=== PATIENT | male | born 1965 | race Two or more races ===

== ENCOUNTER 2017-07-27 23:26 | Emergency (ER) | payer BC ==
[~2017-07-27] VITALS: Ht 165.1 cm; Wt 89.9 kg
[2017-07-28 00:01] LABS: APPEARANCE SL.HAZY ((CLEAR)); BILIRUBIN NEGATIVE; BLOOD MODERATE; COLOR YELLOW ((YELLOW)); GLUCOSE (STRIP) NEGATIVE; KETONES NEGATIVE; LEUKOCYTES TRACE; NITRITE NEGATIVE; PROTEIN (STRIP) 30; SPECIFIC GRAVITY 1.025 (1.000-1.030); UROBILINOGEN 0.2 MG/DL (0.2-1.0)
[2017-07-28 00:17] LABS: HEMATOCRIT 38.8 % (38.0-50.0); HEMOGLOBIN 13.8 G/DL (12.5-16.6); MCH 28.9 PG (29.0-34.0); MCHC 35.6 G/DL (30.0-36.0); MCV 81.3 FL (86-99); PLATELET COUNT 197 K/uL (156-360); RBC DIS.WIDTH-CV 11.9 % (11.8-14.6); RBC DIS.WIDTH-SD 34.5 % (39-53); RED BLOOD COUNT 4.77 M/uL (4.00-5.50); WHITE BLOOD COUNT 14.5 K/uL (4.1-10.2)
[2017-07-28 00:20] LABS: BACTERIA 1+ /HPF; EPITHELIAL CELLS RARE /HPF; MUCUS 3+ /LPF; UCUL ADDED? YES
[2017-07-28 00:21] LABS: CALCIUM OXALATE CRYSTALS 1+ /HPF; HYALINE CASTS RARE /LPF
[2017-07-28 00:31] LABS: ALBUMIN 4.3 g/dL (3.2-4.8)
[2017-07-28 00:32] LABS: CHLORIDE 105 mEq/L (99-109); POTASSIUM 3.6 mEq/L (3.7-5.4); SODIUM 137 mEq/L (136-147)
[2017-07-28 00:34] LABS: GLUCOSE 118 mg/dL (70-99); TOTAL PROTEIN 7.2 g/dL (6.4-8.3)
[2017-07-28 00:36] LABS: TOTAL BILIRUBIN 0.8 mg/dL (0.0-1.0)
[2017-07-28 00:37] LABS: ALKALINE PHOSPHATASE 68 IU/L (3-129)
[2017-07-28 00:38] LABS: CREATININE 1.4 mg/dL (0.6-1.3); GFR ESTIMATE (CALCULATED) 57 mL/min/ (58.99-99999)
[2017-07-28 00:39] LABS: AST (GOT) 17 IU/L (2-34); UREA NITROGEN (BUN) 23 mg/dL (9-23)
[2017-07-28 00:41] LABS: ALT (GPT) 21 IU/L (3-49); LIPASE 12 U/L (1.0-51.0)
[2017-07-28] MEDS ORDERED: CIPRO500 MG PO (03:35)
[2017-07-28] MEDS ORDERED: PERCOCET 5/31 TABLET PO (03:35)
[2017-07-28] MEDS ORDERED: ZOFRAN ODT4 MG PO (03:35)
[2017-07-28] MEDS ORDERED: FLOMAX0.4 MG PO (03:35)
[2017-07-28 03:53] VITALS: BP 152/87
== END 2017-07-28 03:54 | disposition home or self-care (01) ==
LOC: EME 23:26
DX: N39.0 Urinary tract infection, site not specified (principal); N20.1 Calculus of ureter
CPT/HCPCS: 74177; 80053; 81003; 83690; 85027; 87086; 99281; 99285; J2270; J2405; J7030